=== PATIENT | female | born 1965 | race Caucasian/White ===

== ENCOUNTER 2017-10-13 10:00 | Inpatient (IN) | END 2017-10-13 17:00 | disposition home or self-care (01) | DRG 392 ==

== ENCOUNTER 2017-11-27 12:42 | Inpatient (IN) | END 2017-12-02 16:57 | disposition home or self-care (01) | DRG 828 ==

== ENCOUNTER 2018-07-12 15:32 | Inpatient (IN) | END 2018-07-16 18:45 | disposition home or self-care (01) | DRG 331 ==